=== PATIENT | female | born 1950 | race Caucasian/White ===

== ENCOUNTER 2021-02-05 11:04 | Outpatient (CLI) | payer MEDICARE, OTHER | END 2021-02-05 23:59 | disposition home or self-care (01) | LOC: RAD 11:04 | PROVIDERS: ATTEND Physician Assistant Medical | DX: M79.89 Other specified soft tissue disorders (principal) ==

== ENCOUNTER 2021-06-23 16:20 | Outpatient (CLI) | payer MEDICARE ==
[2021-06-23 17:08] LABS: BASOPHILS % (AUTO) 1 % (0-1); EOSINOPHILS % (AUTO) 2 % (1-7); LYMPHOCYTES % (AUTO) 29 % (22-44); MEAN CORPUSCULAR HEMOGLOBIN 30.9 pg (27.0-34.8); MEAN CORPUSCULAR HGB CONC 34.2 g/dL (32.4-35.8); MEAN PLATELET VOLUME 7.4 fL (7.4-10.4); MONOCYTES % (AUTO) 9 % (2-9); NEUTROPHILS % (AUTO) 59 % (42-75); PLATELET COUNT 315 x10^3/uL (130-400); RED BLOOD COUNT 4.67 x10^6/uL (3.82-5.3); RED CELL DISTRIBUTION WIDTH 13.7 % (9.6-15.2)
[2021-06-23 17:13] LABS: ALBUMIN 3.1 g/dL (3.4-5.0); ANION GAP 6 mmol/L (5-15); CALCIUM 9.3 mg/dL (8.5-10.1); CHLORIDE 108 mmol/L (98-107)
[2021-06-23 17:41] LABS: % IRON SATURATION 19 % (20-55); ALANINE AMINOTRANSFERASE 20 U/L (12-78); ALKALINE PHOSPHATASE 99 U/L (45-117); BILIRUBIN,TOTAL 0.4 mg/dL (0.2-1.0); CHOL/HDL RATIO 2.8; CHOLESTEROL, TOTAL 119 mg/dL (140-239); HDL CHOL % 35 % (28-40); HDL CHOLESTEROL (DIRECT) 42 mg/dL (40-60); IRON LEVEL 46 mcg/dL (50-170); LDL CHOLESTEROL,CALCULATED 62 mg/dL (54-169); LDL/HDL RATIO 1.5 (0.5-3.0); PREALBUMIN 18.9 mg/dL (20.0-40.0); TOTAL IRON BINDING CAPACITY 248 mcg/dL (250-450); TOTAL PROTEIN 7.5 g/dL (6.4-8.2); TRANSFERRIN 188 mg/dL (200-360); TRIGLYCERIDES 75 mg/dL (50-200); VLDL CHOLESTEROL 15 mg/dL (0-25)
[2021-06-23 17:44] LABS: FOLATE LEVEL > 20.0 ng/mL (3.1-17.5)
== END 2021-06-23 23:59 | disposition home or self-care (01) ==
LOC: LAB 16:20
PROVIDERS: ATTEND Nurse Practitioner Acute Care
DX: Z13.89 Encounter for screening for other disorder (principal); E66.01 Morbid (severe) obesity due to excess calories; K76.0 Fatty (change of) liver, not elsewhere classified; R73.9 Hyperglycemia, unspecified; Z90.3 Acquired absence of stomach [part of]
CPT/HCPCS: 36415; 80053; 80061; 82306; 82607; 82728; 82746; 83540; 83550; 84134; 84207; 84252; 84425; 84466; 84630; 85025